=== PATIENT | male | born 1960 | race Caucasian/White ===

== ENCOUNTER 2017-09-12 17:43 | Emergency (ER) | payer OTHER, SELFPAY ==
[2017-09-12 17:47] VITALS: BP 145/80; PULSE 81; RESP 18; TEMP 35.9; O2SAT 96; BMI 47.9
--- NOTE | 2017-09-12 17:59 | DI.RAD.S_ITS ---
PROCEDURE: XR ELBOW LT 2V INDICATIONS: injury TECHNIQUE: 2 views of the elbow were acquired. COMPARISON: None. FINDINGS: Bones: No fractures or dislocations. No suspicious bony lesions. Ossicles adjacent to the medial epicondyle suggesting epicondylitis. There is a osteochondroma in the distal humeral metaphysis. Soft tissues: No elbow joint effusion. No suspicious soft tissue calcifications. IMPRESSION: 1. No definitive fractures. If clinical symptoms persist or clinical suspicion for pathology is high, a repeat examination in 7-10 days, or advanced imaging such as CT or MRI is suggested for further evaluation. 2. Suspect lateral epicondylitis. 3. An osteochondroma in the distal humeral metaphysis. Dictated by: Mirian Lowery M.D. on 09/12/2017 at 18:27 Approved by: Mirian Lowery M.D. on 09/12/2017 at 18:37
--- NOTE | 2017-09-12 19:10 | ED_ITS ---
HPI - Extremity Injury (Upper) <GARY Valerio - Last Filed: 09/12/17 22:15> General Chief Complaint: Extremity Injury, Upper Stated Complaint: FALL LEFT ARM INJURY Time Seen by Provider: 09/12/17 19:13 History of Present Illness HPI narrative: 56-year-old male here for complaint of pain into his left elbow status post fall out of a truck that happened earlier this afternoon. 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 He reports increased pain with motion of the left elbow. He denies any other injuries or concerns. Pain is limited to the left elbow. Patient is right-hand dominant MD complaint: injury to: left and elbow Related Data Home Medications Medication Instructions Recorded Confirmed No Known Home Medications 09/12/17 09/12/17 Allergies Allergy/AdvReac Type Severity Reaction Status Date / Time amoxicillin Allergy Severe Swelling Verified 09/12/17 17:51 of Lip/Tongue/Throat Penicillins Allergy Severe Swelling Verified 09/12/17 17:51 of Lip/Tongue/Throat Review of Systems <GARY Valerio - Last Filed: 09/12/17 22:15> Constitutional Comments: Left elbow pain Eyes Denies change in vision, Denies eye discharge, Denies irritation and Denies loss of vision ENT Ears, Nose, Mouth, and Throat: Denies change in voice, Denies neck pain and Denies sore throat Cardiovascular Denies chest pain, Denies irregular heart rhythm, Denies lightheadedness, Denies palpitations, Denies dyspnea, Denies dyspnea on exertion and Denies orthopnea Respiratory Denies cough, Denies dyspnea, Denies dyspnea on exertion and Denies wheezing Gastrointestinal Gastrointestinal: Denies abdominal pain, Denies change in bowel habits, Denies diarrhea, Denies nausea and Denies vomiting Genitourinary Denies hematuria, Denies flank pain, Denies urinary incontinence and Denies urinary urgency Musculoskeletal Denies neck pain Integumentary/Breasts Denies pruritus, Denies erythema, Denies rash and Denies wounds Neurologic Denies confusion and Denies loss of vision Psychiatric Denies anxiety, Denies confusion, Denies depression, Denies homicidal ideation and Denies suicidal ideation Endocrine Denies palpitations Allergic/Immunologic Denies wheezing Exam <GARY Valerio - Last Filed: 09/12/17 22:15> Initial Vital Signs Initial Vital Signs: Vital Signs Temperature 96.6 F L 09/12/17 17:47 Pulse Rate 81 09/12/17 17:47 Respiratory Rate 18 09/12/17 17:47 Blood Pressure 145/80 H 09/12/17 17:47 Pulse Oximetry 96 09/12/17 17:47 Const General: cooperative and well developed Nutritional Appearance: well nourished Orientation: alert, awake, oriented x3 and not confused [facility] Head: normal to inspection, normocephalic and atraumatic Mouth: oral mucosae normal and moist mucous membranes Eyes Sclera: sclerae normal Cornea: corneas normal Pupils: PERRL EOM: EOM intact bilaterally Neck Neck: normal visual inspection, trachea midline, No lymphadenopathy, No midline deformity and No JVD Lymphatic: No lymphedema Resp Effort & Inspection: normal respiratory effort, able to speak in complete sentences, no respiratory distress and no use of accessory muscles Auscultation: clear to auscultation bilaterally, no rales, no rhonchi and no wheezes Cardio Rate: regular rate Rhythm: regular rhythm Heart Sounds: no click, no gallops, no murmurs and no rubs Skin General: no rashes or lesions noted, No jaundice and No petechiae <Mary Bryant DO - Last Filed: 09/13/17 01:10> Initial Vital Signs Initial Vital Signs: Vital Signs Temperature 96.6 F L 09/12/17 17:47 Pulse Rate 81 09/12/17 17:47 Respiratory Rate 18 09/12/17 17:47 Blood Pressure 145/80 H 09/12/17 17:47 Pulse Oximetry 96 09/12/17 17:47 Course <GARY Valerio - Last Filed: 09/12/17 22:15> Orders Ordered: ED Orders 09/12/17 17:59 XR elbow LT 2V Stat Vital Signs - 8 hr 09/12/17 17:47 09/12/17 20:20 Temperature 96.6 F L Pulse Rate 81 86 Respiratory Rate 18 Blood Pressure 145/80 H Blood Pressure [Right Arm] 159/93 H Pulse Oximetry 96 94 <Mary Bryant DO - Last Filed: 09/13/17 01:10> Orders Ordered: ED Orders 09/12/17 17:59 XR elbow LT 2V Stat Vital Signs - 8 hr 09/12/17 17:47 09/12/17 20:20 Temperature 96.6 F L Pulse Rate 81 86 Respiratory Rate 18 Blood Pressure 145/80 H Blood Pressure [Right Arm] 159/93 H Pulse Oximetry 96 94 MDM - Extremity Injury (Upper) <GARY Valerio - Last Filed: 09/12/17 22:15> Imaging Data Left elbow : Radiologist's impression: PROCEDURE: XR ELBOW LT 2V INDICATIONS: injury TECHNIQUE: 2 views of the elbow were acquired. COMPARISON: None. FINDINGS: Bones: No fractures or dislocations. No suspicious bony lesions. Ossicles adjacent to the medial epicondyle suggesting epicondylitis. There is a osteochondroma in the distal humeral metaphysis. Soft tissues: No elbow joint effusion. No suspicious soft tissue calcifications. IMPRESSION: 1. No definitive fractures. If clinical symptoms persist or clinical suspicion for pathology is high, a repeat examination in 7-10 days, or advanced imaging such as CT or MRI is suggested for further evaluation. 2. Suspect lateral epicondylitis. 3. An osteochondroma in the distal humeral metaphysis. Dictated by: Mirian Lowery M.D. on 09/12/2017 at 18:27 Approved by: Mirian Lowery M.D. on 09/12/2017 at 18:37 [facility] Narrative Medical decision making narrative: X-rays obtained of the left elbow and was negative for any acute findings. Signs and symptoms presents as contusion to the left elbow. [id number] Tylenol or Motrin as needed for any discomfort. Ice and elevation help with swelling. Follow up with primary care provider in 7-10 days for repeat films if still having pain into the left elbow to rule out occult fracture. If continue symptoms long-term may need MRI to left elbow to rule out soft tissue injury. For any worsening symptoms return to the emergency room. Discharge Plan Departure Patient Disposition: Home, Self-Care Clinical Impression: Contusion of elbow, left Discharge Date/Time: 09/12/17 20:21 Interventions: ED Discharge Assessment Last Done: 09/12/17 20:21 Instructions: DI for Elbow Pain Activity Restrictions/Additional Instructions: X-rays obtained of the left elbow and was negative for any acute findings. Signs and symptoms presents as contusion to the left elbow. Bsja-hun-qalrldm Tylenol or Motrin as needed for any discomfort. Ice and elevation help with swelling. Follow up with primary care provider in 7-10 days for repeat films if still having pain into the left elbow to rule out occult fracture. If continue symptoms long-term may need MRI to left elbow to rule out soft tissue injury. For any worsening symptoms return to the emergency room. Prescriptions: No Action No Known Home Medications RF: 0 Referrals: [facility] [Provider Group] <Mary Bryant DO - Last Filed: 09/13/17 01:10> Cosign ED Attending Johnathonature Attestation: I was immediately available in the department for consultation. Documentation has been reviewed. I agree with assessment and plan.
[2017-09-12 20:20] VITALS: BP 159/93; PULSE 86; O2SAT 94
== END 2017-09-12 20:21 | disposition home or self-care (01) ==
PROVIDERS: Emergency Provider Nurse Practitioner Family
DX: S50.02XA Contusion of left elbow, initial encounter (principal); W17.89XA Other fall from one level to another, initial encounter
CPT/HCPCS: 73070; 99282; 99283

== ENCOUNTER 2017-09-29 09:55 | Emergency (ER) | payer OTHER, SELFPAY ==
[2017-09-29 10:07] VITALS: BP 149/98; PULSE 85; RESP 18; TEMP 36.6; O2SAT 99; BMI 51.7
--- NOTE | 2017-09-29 10:10 | ED_ITS ---
HPI - Extremity Injury (Upper) General Chief Complaint: Extremity Injury, Upper Stated Complaint: swollen left arm from fall 2 weeks ago Time Seen by Provider: 09/29/17 10:09 Source: patient Mode of arrival: ambulatory Limitations: no limitations History of Present Illness HPI narrative: Patient is a 56-year-old male here for evaluation of left elbow pain. 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 Was seen here in the emergency department and had x- rays performed which showed no acute fractures. Patient was told that if his symptoms do not improve within a couple weeks he should return for further x- rays. He states that for the past 2 weeks he has tried [id number] medication however his elbow is continue to hurt. He states that he feels a ? click? in the area with limited range of motion. And also feels like it is ? dislocated? no wrist pain. No shoulder pain. Related Data Home Medications Medication Instructions Recorded Confirmed ibuprofen [Advil] 1 tab PO PRN PRN 09/29/17 09/29/17 naproxen sodium [Aleve] 220 mg PO PRN PRN 09/29/17 09/29/17 Allergies Allergy/AdvReac Type Severity Reaction Status Date / Time amoxicillin Allergy Severe Swelling Verified 09/29/17 10:26 of Lip/Tongue/Throat Penicillins Allergy Severe Swelling Verified 09/29/17 10:26 of Lip/Tongue/Throat Review of Systems Constitutional Denies fatigue and Denies fever(s) Cardiovascular Denies chest pain, Denies palpitations and Denies dyspnea Respiratory Denies cough and Denies dyspnea Gastrointestinal Gastrointestinal: Denies abdominal pain, Denies nausea and Denies vomiting Musculoskeletal Comments: Left elbow pain with left arm swelling Integumentary/Breasts Denies lesions and Denies rash Neurologic Comments: No numbness or tingling left upper extremity Endocrine Denies fatigue and Denies palpitations Hematologic/Lymphatic Denies easy bleeding and Denies easy bruising [facility] Medical History Hypertension (Acute) Surgical History H/O umbilical hernia repair (Acute) Social History Smoking Status: Former smoker Exam Initial Vital Signs Initial Vital Signs: Vital Signs Temperature 97.9 F 09/29/17 10:07 Pulse Rate 85 09/29/17 10:07 Respiratory Rate 18 09/29/17 10:07 Blood Pressure 149/98 H 09/29/17 10:07 Pulse Oximetry 99 09/29/17 10:07 Const General: cooperative, healthy appearing, comfortable, well developed, well groomed and No acute distress Nutritional Appearance: overweight Orientation: alert, awake and oriented x3 HENMT Head: normal to inspection and normocephalic Resp Effort & Inspection: normal respiratory effort Skin Lesions: no lesions Rashes: no rashes Neuro Other: Sensation intact to light touch left upper extremity Extrem Other: Left shoulder unremarkable Left forearm unremarkable Left wrist unremarkable Left hand unremarkable Patient with limited range of motion active and passive of extending his left elbow. Holds his elbow in 90? of flexion. Has pain with supination. Psych Appearance: grossly normal and well kempt Course Orders Ordered: ED Orders 09/29/17 10:21 XR elbow LT min 3V Stat Vital Signs - 8 hr 09/29/17 10:07 Temperature 97.9 F Pulse Rate 85 Respiratory Rate 18 Blood Pressure 149/98 H Pulse Oximetry 99 [facility] - Extremity Injury (Upper) Medical Records Attestation: I reviewed the patient's medical records. Imaging Data X-ray elbow: Radiologist's impression: PROCEDURE: XR ELBOW LT MIN 3V INDICATIONS: Left elbow pain after fall with increasing swelling TECHNIQUE: 3 views of the elbow were acquired. COMPARISON: [facility], , XR ELBOW LT 2V, 09/12/2017, 18:05. FINDINGS: Bones: There is a comminuted fracture of the right radial head. No other fracture or dislocation. Mild degenerative changes are present at the elbow joint. Soft tissues: In elbow joint is not well appreciated; however given the radial head fracture, an occult joint effusion is suspected. Soft tissue calcifications are redemonstrated along the lateral epicondyle. IMPRESSION: Comminuted radial head fracture. Dictated by: Regina Molina M.D. on 09/29/2017 at 10:52 Approved by: Regina Molina M.D. on 09/29/2017 at 10:53 [facility] Narrative Medical decision making narrative: Patient with a comminuted left radial head fracture. Injury was 2 weeks ago. Reviewed the x-ray from that time and was reported as negative. I did discuss this with the patient. He was placed in a splint. He was given follow-up with the orthopedic group here in [facility]. He was given return precautions. He expressed understanding and agreement with plan. Splint placed by nursing staff Discharge Plan Departure Patient Disposition: Home, Self-Care Clinical Impression: Closed fracture of radial head Instructions: DI for Elbow Fracture, How to Take Care of Your Splint Activity Restrictions/Additional Instructions: Keep the splint on and keep it clean and keep it dry. Call your primary care doctor for a follow-up. Also recommend you contact the [facility]opedic group at [phone] for a follow-up. Return to the emergency department for any new or worsening symptoms Prescriptions: No Action naproxen sodium [Aleve] 220 mg Tablet 220 mg PO PRN PRN (Reason: Pain, Moderate) RF: 0 ibuprofen [Advil] 200 mg Tablet 1 tab PO PRN PRN (Reason: Inflammation) RF: 0
--- NOTE | 2017-09-29 10:21 | DI.RAD.S_ITS ---
PROCEDURE: XR ELBOW LT MIN 3V INDICATIONS: Left elbow pain after fall with increasing swelling TECHNIQUE: 3 views of the elbow were acquired. COMPARISON: [facility], CR, XR ELBOW LT 2V, 09/12/2017, 18:05. FINDINGS: Bones: There is a comminuted fracture of the right radial head. No other fracture or dislocation. Mild degenerative changes are present at the elbow joint. Soft tissues: In elbow joint is not well appreciated; however given the radial head fracture, an occult joint effusion is suspected. Soft tissue calcifications are redemonstrated along the lateral epicondyle. IMPRESSION: Comminuted radial head fracture. Dictated by: Regina Molina M.D. on 09/29/2017 at 10:52 Approved by: Regina Molina M.D. on 09/29/2017 at 10:53
[2017-09-29 11:40] VITALS: BP 166/92; PULSE 87; RESP 16; O2SAT 99
== END 2017-09-29 11:49 | disposition home or self-care (01) ==
PROVIDERS: Emergency Provider Emergency Medicine
DX: S52.123A Displaced fracture of head of unspecified radius, initial encounter for closed fracture (principal); W17.89XA Other fall from one level to another, initial encounter; Y99.0 Civilian activity done for income or pay
CPT/HCPCS: 29105; 73080; 99282; 99283

== ENCOUNTER → 2017-10-13 09:39 | Outpatient (CLI) | payer OTHER, SELFPAY ==
--- NOTE | 2017-10-13 | DI.CT.S_ITS ---
PROCEDURE: CT UE LT WO CON INDICATIONS: CLOSED DISPLACED FRACTURE HEAD OF LEFT RADIUS TECHNIQUE: Noncontrast 1-1.5 mm axial sections were acquired through the elbow joint, with coronal and sagittal reformats. COMPARISON: [facility], CR, XR ELBOW LT 2V, 09/12/2017, 18:05. [facility], CR, XR ELBOW LT MIN 3V, 09/29/2017, 10:09. FINDINGS: Image quality: Excellent. Bones: Mildly displaced, comminuted and articulating fracture of the radial head is redemonstrated. There is slight offset of the articular component in the anterior portion of the radial head. Also noted is bony irregularity compatible with avulsion fracture in the posterior margin of the capitellum. Traction spur olecranon process Soft tissues: Calcifications are again noted overlying the lateral epicondyle. Small calcifications in the far posterior soft tissues of the upper arm. IMPRESSION: 1. Articulating fracture of the radial head with slight offset of the articular margin and mild displacement of the superior component 2. Small avulsion fractures posterior margin of the capitellum. Dictated by: Timothy Stubbs M.D. on 10/13/2017 at 11:06 Approved by: Timothy Stubbs M.D. on 10/13/2017 at 11:15
== END ==
PROVIDERS: Visit Provider Physician Assistant
DX: S52.122A Displaced fracture of head of left radius, initial encounter for closed fracture (principal); S62.132A Displaced fracture of capitate [os magnum] bone, left wrist, initial encounter for closed fracture
CPT/HCPCS: 73200

== ENCOUNTER → 2017-10-17 16:03 | Outpatient (CLI) | payer OTHER, SELFPAY ==
[2017-10-17 17:02] LABS: Add Manual Diff / Slide Review NO; Basophils Percent Auto 0.5 % (0-2); Eosinophils Percent Auto 2.2 % (2-4); Lymphocytes Percent Auto 31.1 % (25-40); Mean Corpuscular HGB Conc 34.2 % (30-36); Mean Corpuscular Hemoglobin 31.1 PG (26-34); Mean Corpuscular Volume 90.9 fL (80-100); Monocytes Percent Auto 5.7 % (3-14); Neutrophils Absolute Auto 4200 /uL (3000-5900); Neutrophils Percent Auto 60.5 % (50-75); Platelet Count 189 X10^3/uL (150-400); Red Blood Cell Count 4.84 X10^6/uL (4.5-5.9); Red Cell Distribution Width 13.7 % (11.6-14.8)
[2017-10-17 17:03] LABS: Hemoglobin A1C% w Est Avg Glu 5.6 % (4.0-6.0)
[2017-10-17 18:20] LABS: BUN Creatinine Ratio 15.6 (6-22); Blood Urea Nitrogen 14 mg/dL (9-20); Calcium 9.3 mg/dL (8.4-10.2); Carbon Dioxide 30 mmol/L (22-32); Chloride 102 mmol/L (98-107); Estimated Glomerular Filt Rate > 60.0 mL/min (>60); Glucose 128 mg/dL (70-100); HEMOLYSIS < 15 (0-50); Potassium 4.3 mmol/L (3.4-5.1); Sodium 141 mmol/L (137-145)
== END ==
PROVIDERS: Visit Provider Physician Assistant
DX: S52.122A Displaced fracture of head of left radius, initial encounter for closed fracture (principal); Z01.818 Encounter for other preprocedural examination; Z01.812 Encounter for preprocedural laboratory examination; R73.9 Hyperglycemia, unspecified
CPT/HCPCS: 36415; 80048; 83036; 85025; 93005

== ENCOUNTER → 2018-01-27 12:45 | Outpatient (CLI) | payer OTHER, SELFPAY ==
--- NOTE | 2018-01-27 | DI.RAD.S_ITS ---
PROCEDURE: [place] WRIST INJECTION MR/CT LT INDICATIONS: Displaced fracture of head of left radius, subsequ TECHNIQUE: After informed consent had been obtained, the wrist was examined fluoroscopically, and a site chosen for injection of the radiocarpal compartment from a dorsal approach. Skin was prepped and draped in a sterile fashion and 1% lidocaine infiltrated from the skin down to the articular surface. The patient was unable to cooperate with standard positioning due to body habitus and pain in the left elbow and forear. Attempt was made to introduce a hypodermic needle into the articular space with confirmation of joint injection of contrast medium, which was unsuccessful. Needle was removed and dressing was applied. The patient experienced no complications throughout the procedure and left the fluoroscopic suite in no apparent distress. FINDINGS: A single fluoroscopic spot image demonstrates [id number] injected contrast. IMPRESSION: Fluoroscopic-guided administration of dilute Gadolinium solution for wrist MR arthrogram. The patient was unable to tolerate standard positioning for the procedure. Unable to place the needle into the radiocarpal joint. Dictated by: Mirian Lowery M.D. on 01/27/2018 at 14:10 Approved by: Mirian Lowery M.D. on 01/27/2018 at 14:17
--- NOTE | 2018-01-27 | DI.MRI.S_ITS ---
PROCEDURE: MR WRIST LT W CON INDICATIONS: Displaced fracture of head of left radius, subsequ TECHNIQUE: After the administration of 3-4 mL of dilute intra-articular Gadolinium contrast into the radiocarpal compartment, coronal T1 spin echo with fat saturation and T2 fast spin echo with fat saturation, axial T1 spin echo and T2 fast spin echo with fat saturation, sagittal T1 spin echo with and without fat saturation through the wrist. COMPARISON: [facility], , [place] WRIST INJECTION MR/CT LT, 01/27/2018, 12:03. [facility], CR, XR WRIST 3+ VIEWS LEFT, 11/10/2017, 9:42. [facility], CR, XR HAND 1 OR 2 VIEWS BILATERAL, 01/09/2018, 14:37. [facility], CR, XR WRIST 3+ VIEWS LEFT, 01/09/2018, 14:33. FINDINGS: Image quality: Excellent. Bones and cartilage: The carpal bones are normally aligned. No bone marrow contusions or fractures. Small ossicle seen adjacent to the ulnar styloid on the radiographs dated 11/10/17 probably visualized on image 10 series 6. No evidence for avascular necrosis. There is severe distal radioulnar joint degeneration with a small joint effusion without T1 shortening. Carpal ligaments: The scapholunate and lunotriquetral ligaments appear intact. The radioscaphocapitate and radiolunotriquetral ligaments appear intact. The arcuate ligament and short radiolunate ligament also appear normal. The dorsal intercarpal and radiotriquetral ligaments appear intact. On sagittal images, the pisohamate ligament appears intact. Triangular fibrocartilage complex: The triangular fibrocartilage disc appears frayed. The ulnar attachments appear grossly intact. There is frayed appearance of the radial attachment. The adjacent meniscal homolog appears normal. The ulnar collateral ligament appears intact. The extensor carpi ulnaris tendon is normal in location and morphology. Tendons and soft tissues: The carpal tunnel structures appear normal, including the median nerve. The ulnar nerve appears normal within Guyon's canal. Incidental gadolinium contrast material surrounding the extensor pollicis longus, extensor carpi radialis longus and extensor carpi radialis brevis image 17 series 5, presumably related to the injection. IMPRESSION: Frayed appearance in the central disc and radial attachment of the TFCC suggesting ill-defined, probably chronic/degenerative tear. There is adjacent partial-thickness chondral loss involving the proximal surface of the lunate as well as the distal ulna. Mild subchondral edema in the proximal lunate. The remaining TFCC components appear grossly intact. Distal radioulnar joint degeneration with small joint effusion. Dictated by: Nathanael Christopher M.D. on 01/27/2018 at 14:48 Approved by: Nathanael Christopher M.D. on 01/27/2018 at 15:12
== END ==
PROVIDERS: PCP Physical Therapist; Visit Provider Orthopaedic Surgery
DX: S52.122D Displaced fracture of head of left radius, subsequent encounter for closed fracture with routine healing (principal); M19.032 Primary osteoarthritis, left wrist; M25.432 Effusion, left wrist
CPT/HCPCS: 20605; 73222; 76000

== ENCOUNTER → 2018-03-13 13:46 | Outpatient (CLI) | payer OTHER, SELFPAY ==
--- NOTE | 2018-03-13 | DI.MRI.S_ITS ---
PROCEDURE: MR ELBOW LT W CON INDICATIONS: Displaced fracture of head of left radius, sequela TECHNIQUE: Noncontrast coronal proton density fast spin echo and T2 fast spin echo with fat saturation, axial and sagittal T1 spin echo and T2 fast spin echo with fat saturation through the elbow. COMPARISON: [facility], CR, XR ELBOW 3+ VIEWS LEFT, 02/16/2018, 10:01. FINDINGS: Image quality: Suboptimal due to difficulties with patient positioning, which is reportedly due to body habitus. This precludes normal axial and coronal pulse sequences. There is also motion artifact. Lateral structures: The lateral ulnar collateral ligament and radial collateral ligament are not well evaluated due to suboptimal patient positioning. The overlying common extensor tendon not well seen. Medial structures: The ulnar collateral ligament is not well evaluated due to patient positioning. The overlying common flexor tendon not well seen. The ulnar nerve appears normal in size and signal within the cubital tunnel. Anterior structures: The biceps and brachialis tendons both appear grossly intact as they insert onto the proximal radius and ulna, respectively. No bicipitoradial bursal fluid. The median and radial neurovascular bundles appear normal; no focal muscle atrophy to suggest nerve impingement. Posterior structures: Triceps tendinopathy however only visualized on one pulse sequence. Bone and cartilage: Radial head fracture fragment is noted on image 12 series 7 measuring approximately 5 mm. No definite bridging ossification based on the T1-weighted pulse sequences. There is residual articular surface step-off measuring 2 mm and diastasis measuring approximately 4 mm. Radiocapitellar and ulnotrochlear joint degeneration is seen. There is a joint effusion. IMPRESSION: Joint effusion Ununited appearance of radial head fracture with residual articular surface incongruity at the radiocapitellar articulation. Further bony detail could be characterized with CT as clinically warranted. Limited evaluation given difficulties with patient positioning which precludes normal axial and coronal pulse sequences. With those constraints, technically difficult to evaluate for the common extensor and common flexor tendons, and collateral ligaments. Radiocapitellar and ulnotrochlear joint degeneration. Distal triceps tendinopathy. Dictated by: Nathanael Christopher M.D. on 03/13/2018 at 16:28 Approved by: Nathanael Christopher M.D. on 03/13/2018 at 16:45
== END ==
PROVIDERS: PCP Physical Therapist; Visit Provider Orthopaedic Surgery
DX: S52.122S Displaced fracture of head of left radius, sequela (principal); M19.022 Primary osteoarthritis, left elbow; M25.422 Effusion, left elbow
CPT/HCPCS: 73221

== ENCOUNTER 2019-06-05 10:10 | Emergency (ER) | payer OTHER, MEDICAID, SELFPAY ==
[2019-06-05 10:35] VITALS: BP 170/93; PULSE 92; RESP 22; TEMP 37.1; O2SAT 95; BMI 47.6
--- NOTE | 2019-06-05 11:55 | DI.RAD.S_ITS ---
PROCEDURE: XR CHEST 2V INDICATIONS: moist productive cough TECHNIQUE: 2 views of the chest were acquired. COMPARISON: None. FINDINGS: Surgical changes and devices: None. Lungs and pleura: Lungs are clear. No pleural effusions or pneumothorax. Mediastinum: Mediastinal contours are normal. Heart size is normal. Bones and chest wall: No suspicious bony abnormalities. Age-appropriate bony degenerative changes are seen. Soft tissues appear unremarkable. IMPRESSION: No focal infiltrates are seen. If there is clinical concern for a developing pulmonary process, a short-term followup chest series (with PA and lateral views, performed in deep inspiration) is suggested for further evaluation. Dictated by: Hal Chow M.D. on 06/05/2019 at 11:26 Approved by: Hal Chow M.D. on 06/05/2019 at 11:27
--- NOTE | 2019-06-05 12:08 | ED_ITS ---
HPI - URI/Sore Throat <TOI DeP - Last Filed: 06/06/19 02:10> General Chief Complaint: Upper Respiratory Symptoms Stated Complaint: COUGH SINCE FRI NIGHT POSS COVID 19 Time Seen by Provider: 06/05/19 11:47 Source: patient Mode of arrival: Ambulatory Limitations: no limitations History of Present Illness HPI Narrative: This is a 58-year-old male, former smoker, who presents to ED with chief complain of sore throat and cough since 2 days ago. Patient has been taking natural remedy at home but without much improvement. Patient reports moist cough which gets worse when he is in supine position and trying to rest and reports sputum is in greenish in brown color. Patient is wondering if has an environment and allergies to pollen. Patient denies nausea, vomiting, fever or chills. Patient denies short of breath, known ill contacts or foreign travel. Related Data Home Medications Medication Instructions Recorded Confirmed ibuprofen [Advil] 1 tab PO PRN PRN 09/29/17 09/29/17 naproxen sodium [Aleve] 220 mg PO PRN PRN 09/29/17 09/29/17 Allergies Allergy/AdvReac Type Severity Reaction Status Date / Time amoxicillin Allergy Severe Swelling Verified 09/29/17 10:26 of Lip/Tongue/Throat Penicillins Allergy Severe Swelling Verified 09/29/17 10:26 of Lip/Tongue/Throat Review of Systems <Edwin Alston [facility] Last Filed: 06/06/19 02:10> Review of Systems Narrative: General: Denies fever, chills, fatigue, malaise, sweats. HEENT: Denies sinus pain, ear pain, sore throat, difficulty swallowing, dizziness. Respiratory: See HPI Cardiovascular: Denies chest pain, palpitations, orthopnea, edema. Gastrointestinal: Denies nausea, vomiting, abdominal pain, diarrhea, constipation, melena. : Denies dysuria, frequency, incontinence, hematuria, urinary retention. Musculoskeletal: Denies weakness, joint pain or bony pain. Skin: Denies rash, skin lesions, or other. Neurologic: Denies weakness, headache, numbness, change in speech, confusion, seizures, incoordination. Psychiatric: No concerning psychosocial issues. 12-point review of systems is negative except for those stated above. Patient History <Edwin GARY Alston - Last Filed: 06/06/19 02:10> Medical History Hypertension (Acute) Surgical History H/O umbilical hernia repair (Acute) Social History Smoking Status: Former smoker Smoking Status: Former smoker alcohol intake frequency: a few times a week Substance Use Type: does not use Exam <GARY De - Last Filed: 06/06/19 02:10> Narrative Exam Narrative: GEN: Alert, oriented x 3, well appearing and nourished, and in no acute distress. Head: Normal cephalic, atraumatic. No scalp or temporal tenderness, palpable mass or rash. EYES: Pupils are equal, round, and reactive to light and accommodation. Extraocular muscles are intact bilaterally. There is no subconjunctival hemorrhage, exudate and sclera non-icteric. ENT: Right auditory canals semi occluded with cerumen. Left auditory canal clear and tympanic membranes clear. Hearing grossly intact. Nose without bleeding, purulent discharge or deviation. Turbinates red and slightly edematous. Facial sinuses nontender to palpate. Mucous membrane moist, no mucosal lesion. Throat without erythema, tonsillar hypertrophy or exudate with postnasal drips Uvula in midline, airway patent. Neck: Trachea in midline. No JVD, non-tender without lymphadenopathy. No masses or thyroid megaly. Supple, non-tender and no meningeal signs. CARDIAC: Normal regular rate and rhythm without murmurs, gallops, or rubs. No chest wall tenderness. No peripheral edema, cyanosis or pallor. Capillary refill is less than 2 seconds. RESPIRATORY: Lungs are clear to auscultate bilaterally. Occasional moist cough without wheezes, rales, or rhonchi. No stridor, respiratory distress, increase work of breathing, or accessary muscle used. ABD: Abdomen obese, nontender. No guarding or rebound tenderness to palpate. Bowel sounds are normal in all 4 quadrants. There is no palpable masses or organomegaly. EXT: Full painless ROM of all extremities with no loss of sensation, strength, effusion or edema. SKIN: Warm, dry, normal color for patient. No erythema, lesions or rash over visible areas. BACK: Nontender without deformity or crepitance. No flank tenderness. NEUROLOGICAL: Alert and oriented to place, time and person. Sensation and motor function intact bilaterally. No facial droops, dysphasia. PSYCHIATRIC: Good judgement and reason, without hallucinations, abnormal affect or abnormal behaviors during the examination. Initial Vital Signs Initial Vital Signs: Vital Signs Temperature 98.8 F 06/05/19 10:35 Pulse Rate 92 H 06/05/19 10:35 Respiratory Rate 22 06/05/19 10:35 Blood Pressure 170/93 H 06/05/19 10:35 Pulse Oximetry 95 06/05/19 10:35 <Forrest Terry MD - Last Filed: 06/11/19 17:59> Initial Vital Signs Initial Vital Signs: Vital Signs Temperature 98.8 F 06/05/19 10:35 Pulse Rate 92 H 06/05/19 10:35 Respiratory Rate 22 06/05/19 10:35 Blood Pressure 170/93 H 06/05/19 10:35 Pulse Oximetry 95 06/05/19 10:35 Scores <GARY De - Last Filed: 06/06/19 02:10> GCS Amna coma scale eye opening: Spontaneous Amna coma scale verbal response: Orientated Amna coma scale motor response: Obey commands [place] coma scale total score: 15 Course <GARY De - Last Filed: 06/06/19 02:10> Orders Ordered: ED Orders 06/05/19 11:55 XR chest 2V Stat 06/05/19 12:00 Influenza A & B (PCR) Stat Vital Signs Vital signs: Vital Signs - 8 hr 06/05/19 10:35 Temperature 98.8 F Pulse Rate 92 H Respiratory Rate 22 Blood Pressure 170/93 H Pulse Oximetry 95 <Forrest Terry MD - Last Filed: 06/11/19 17:59> Orders Ordered: ED Orders 06/05/19 11:55 XR chest 2V Stat 06/05/19 12:00 Influenza A & B (PCR) Stat Vital Signs Vital signs: Vital Signs - 8 hr 06/05/19 10:35 Temperature 98.8 F Pulse Rate 92 H Respiratory Rate 22 Blood Pressure 170/93 H Pulse Oximetry 95 [facility] - I/Sore Throat <GARY De - Last Filed: 06/06/19 02:10> Differential Diagnosis Differential diagnosis: Likely upper respiratory infection, viral infection, bronchitis, influenza and other (postnasal drips/allergy) Medical Records Attestation: I reviewed the patient's medical records. Lab Data Labs: Lab Results 06/05/19 Range/Units 12:00 Influenza A (RT-PCR) Flu a positive H (NEGATIVE) Influenza B (RT-PCR) Flu b negative (NEGATIVE) Imaging Data Chest x-ray: Radiologist's Impression: [address] [address] XRay Report Signed Patient: Ruperto Lake EMR#: [id number] : 1960Acct:[id number] Age/Sex: 58 / MDate of Service: 06/05/19 Loc: ED Accession Number: [id number] Procedure: XR chest 2V Ordering Provider: Edwin Alston PROCEDURE: XR CHEST 2V INDICATIONS: moist productive cough TECHNIQUE: 2 views of the chest were acquired. COMPARISON: None. FINDINGS: Surgical changes and devices: None. Lungs and pleura: Lungs are clear. No pleural effusions or pneumothorax. Mediastinum: Mediastinal contours are normal. Heart size is normal. Bones and chest wall: No suspicious bony abnormalities. Age-appropriate bony degenerative changes are seen. Soft tissues appear unremarkable. IMPRESSION: No focal infiltrates are seen. If there is clinical concern for a developing pulmonary process, a short-term followup chest series (with PA and lateral views, performed in deep inspiration) is suggested for further evaluation. Dictated by: Hal Chow M.D. on 06/05/2019 at 11:26 Approved by: Hal Chow M.D. on 06/05/2019 at 11:27 [facility] Narrative Medical decision making narrative: This is a 58 year male who presents to ED with 3 day duration of sore throat, mild cough. Patient has been using home remedies for his symptoms but symptoms are not improving much. Patient reports moist cough with greenish in brown mucus especially when he is trying to sleep at nights. Patient does not endorse constitutional symptoms. Flu test was obtained and it showed influenza positive for A. There is no acute findings from chest x-ray. Patient advised supportive care at home with good hand and cough hygiene to prevent transmission of illness to others. Patient declined other medications to help his symptoms at this time such as Tessalon, albuterol inhaler. Return precautions were discussed with the patient and patient verbalized understanding and agreement with the treatment plan. <Forrest Terry MD - Last Filed: 06/11/19 17:59> Lab Data Labs: Lab Results 06/05/19 Range/Units 12:00 Influenza A (RT-PCR) Flu a positive H (NEGATIVE) Influenza B (RT-PCR) Flu b negative (NEGATIVE) Discharge Plan Departure Patient Disposition: Home Clinical Impression: Influenza Discharge Date/Time: 06/05/19 13:55 Instructions: DI for Influenza -- Adult Activity Restrictions/Additional Instructions: You have been diagnosed with [influenza A. no acute findings per chest x-ray today]. What to do: *Take your medications as directed. You can take [id number] Tylenol and or Motrin as needed for discomfort or fever. Please hydrate well and rest. Good hand/cough hygiene will prevent transmitting illness to fathers. You have deferred cough pills to go home with. You can take [id number] Mucinex for your symptoms. *Follow up with your primary care provider in 2-3 days, call for an appointment. Let them know you were seen in the ED and that we asked you to be seen in follow up. *Return to ED if you have any new, worsening, or concerning symptoms, such as [chest pain, breathing difficulty, unable to tolerate fluids, high fever not managed with medications, feeling like fainting, or any acute concerns]. Prescriptions: No Action naproxen sodium [Aleve] 220 mg Tablet 220 mg PO PRN PRN (Reason: Pain, Moderate) RF: 0 ibuprofen [Advil] 200 mg Tablet 1 tab PO PRN PRN (Reason: Inflammation) RF: 0 Referrals: Marvin Ha PT [Primary Care Provider] -
[2019-06-05 12:40] LABS: Influenza A - CEPHEID Flu A POSITIVE (NEGATIVE); Influenza B - CEPHEID Flu B NEGATIVE (NEGATIVE)
[2019-06-05 13:54] VITALS: BP 141/86; PULSE 84; RESP 16; TEMP 36.5; O2SAT 96
== END 2019-06-05 13:55 | disposition home or self-care (01) ==
PROVIDERS: Emergency Provider Nurse Practitioner Family; PCP Physical Therapist
DX: J10.1 Influenza due to other identified influenza virus with other respiratory manifestations (principal); I10 Essential (primary) hypertension
CPT/HCPCS: 71046; 87502; 99281; 99283

== ENCOUNTER 2019-12-18 07:30 | Emergency (ER) | payer OTHER, MEDICAID, SELFPAY ==
[2019-12-18] VITALS (11 sets, daily range): BP systolic 143–185; BP diastolic 72–96; PULSE 84–103; RESP 20–30; TEMP 36.7; O2SAT 94–96; BMI 52.2
--- NOTE | 2019-12-18 08:10 | ED_ITS ---
HPI - Sepsis General Chief Complaint: Upper Respiratory Symptoms Mode of arrival: Family Vehicle Source: patient Limitations: no limitations Evaluation Sepsis Screen: No Definite Risk Sepsis Infection Criteria Present: Suspected New Infection Associated Symptoms: fever, chills and loss of appetite Narrative: 58-year-old male, morbidly obese with history of hypertension is a former smoker the presents with fever, chills, poor appetite and foul-smelling urine for the past day or 2. He has here because his boss sent him for fear of possible COVID-19. Patient denies any headache, blurred vision, runny nose, sore throat, cough. He denies any chest pain or shortness of breath. He has had no nausea, vomiting or diarrhea. He denies dysuria or frequency but does admit to foul-smelling urine. He denies any rash. He denies any exposure to persons known to have COVID-19. Review of Systems Constitutional Constitutional: Reports chills, Denies fatigue, Reports fever(s), Denies frequent falls, Denies lethargy and Denies weakness Eyes Eyes: Denies change in vision, Denies eye discharge, Denies irritation and Denies loss of vision ENT Ears, Nose, Mouth, and Throat: Denies change in voice, Denies dizziness, Denies neck pain, Denies sore throat and Denies throat swelling Cardiovascular Cardiovascular: Denies chest pain, Denies irregular heart rhythm, Denies lightheadedness, Denies palpitations, Denies dyspnea, Denies dyspnea on exertion and Denies orthopnea Respiratory Respiratory: Denies cough, Denies dyspnea, Denies dyspnea on exertion and Denies wheezing Gastrointestinal Gastrointestinal: Denies abdominal pain, Denies change in bowel habits, Denies diarrhea, Denies nausea and Denies vomiting Genitourinary Comments: Foul-smelling urine Musculoskeletal Musculoskeletal: Denies neck pain and Denies numbness Integumentary/Breasts Skin/Breast: Denies pruritus, Denies erythema, Denies rash and Denies wounds Neurologic Neurologic: Denies behavioral changes, Denies confusion, Denies dizziness, Denies frequent falls, Denies loss of vision, Denies numbness and Denies weakness Psychiatric Psychiatric: Denies anxiety, Denies behavioral changes, Denies confusion, Denies depression, Denies homicidal ideation and Denies suicidal ideation Endocrine Endocrine: Denies fatigue, Denies flushing and Denies palpitations Hematologic/Lymphatic Hematologic/Lymphatic: Denies easy bruising Allergic/Immunologic Allergic/Immunologic: Denies urticaria, Denies throat swelling and Denies wheezing Patient History Medical History Hypertension (Acute) Surgical History H/O umbilical hernia repair (Acute) Social History Smoking Status: Former smoker Smoking Status: Former smoker tobacco type: cigarettes alcohol intake frequency: a few times a week Substance Use Type: does not use Exam Narrative Exam Narrative: GENERAL: [58] year old patient appears stated age. Morbidly obese, no obvious distress HEAD: Atraumatic. Normocephalic. EYES: Pupils equal round and reactive. Extraocular motions intact. No scleral ic terus. No injection or drainage. ENT: Nose without bleeding, purulent drainage. Throat without erythema, tonsillar hypertrophy or exudate. Airway patent. NECK: Trachea midline. Non tender CARDIOVASCULAR: Regular rate and rhythm without murmurs, gallops, or rubs. RESPIRATORY: Clear to auscultation. Breath sounds equal bilaterally. No wheezes, rales, or rhonchi. GASTROINTESTINAL: Abdomen soft, non-tender, nondistended. EXTREMITIES: No edema or joint tenderness. BACK: Nontender without deformity or crepitance. No flank tenderness. NEURO: AOx3. SKIN: No rash or erythema of visible areas Initial Vital Signs Initial Vital Signs: Vital Signs Temperature 98.1 F 12/18/19 08:03 Pulse Rate 100 H 12/18/19 08:03 Respiratory Rate 25 H 12/18/19 08:03 Blood Pressure 185/96 H 12/18/19 08:03 Pulse Oximetry 96 12/18/19 08:03 Course Course Course Narrative: patient feeling great on DC. Given feverish symptoms, elevated procalcitonin, we discussed treating for atypical pneumonia and elect to treat. Patient had return precautions given, questions answered to his apparent satisfaction. Orders Ordered: ED Orders 12/18/19 08:08 Complete Blood Count AUTO DIFF Stat Procalcitonin Stat 12/18/19 08:09 XR chest 1V Stat Prothrombin Time INR Stat 12/18/19 08:36 COVID19 -ED/INPAT/OR/L&D Stat 12/18/19 09:17 Blood Culture Stat Comprehensive Metabolic Panel Stat D Dimer Stat Ferritin Stat Lactate (Lactic Acid) Stat Magnesium Stat NT-proBNP (BNP-Adult 18+) Stat Troponin & CK Cardiac Panel Stat Discontinued Medications Sodium Chloride (Normal Saline 0.9%) 1,000 mls @ 1,000 mls/hr IV BOLUS ONE Stop: 12/18/19 09:05 Last Infusion: 12/18/19 10:25 Dose: 0 mls/hr Documented by: Admin: 12/18/19 08:48 Dose: 1,000 mls/hr Documented by: GILBERTO Vital Signs Vital signs: Vital Signs - 8 hr 12/18/19 08:03 12/18/19 08:41 12/18/19 09:00 Temperature 98.1 F Pulse Rate 100 H 93 H 94 H Respiratory Rate 25 H 30 H 27 H Blood Pressure 185/96 H Pulse Oximetry 96 94 94 12/18/19 09:01 12/18/19 09:30 12/18/19 09:31 Temperature Pulse Rate 94 H 103 H 96 H Respiratory Rate 24 25 H 23 Blood Pressure 151/72 H 159/74 H Pulse Oximetry 94 94 95 12/18/19 10:00 12/18/19 10:22 12/18/19 10:30 Temperature Pulse Rate 91 H 94 H 90 Respiratory Rate 25 H 27 H Blood Pressure 143/96 H 153/82 H Pulse Oximetry 95 95 94 12/18/19 11:00 12/18/19 11:30 Temperature Pulse Rate 84 86 Respiratory Rate 23 20 Blood Pressure 146/79 H 156/75 H Pulse Oximetry 94 94 MDM - Sepsis Lab Data Result diagrams: 12/18/19 08:08 12/18/19 09:17 Labs: Lab Results 12/18/19 12/18/19 12/18/19 Range/Units 08:08 08:08 08:09 WBC 8.3 (4.5-11.0) X10^3/uL RBC 4.52 (4.5-5.9) X10^6/uL Hgb 14.5 (13.5-17.5) g/dL Hct 41.9 (41-53) % MCV 92.9 (80-100) fL MCH 32.1 (26-34) PG MCHC 34.6 (30-36) % RDW 14.0 (11.6-14.8) % Plt Count 133 L (150-400) X10^3/uL Neut % (Auto) 81.6 H (50-75) % Lymph % (Auto) 9.5 L (25-40) % [place] % (Auto) 7.7 (3-14) % Eos % (Auto) 0.1 L (2-4) % Baso % (Auto) 1.1 (0-2) % Neut # (Auto) 6800 (7072-7272) /uL Lymph # (Auto) 800 L (5968-4446) /uL [place] # (Auto) 600 (0-900) /uL Eos # (Auto) 0 (0-450) /uL Baso # (Auto) 100 (0-100) /uL PT 13.0 H (10.1-12.7) SECONDS INR 1.1 (0.9-1.3) D-Dimer (<230) ng/mL Sodium (137-145) mmol/L Potassium (3.4-5.1) mmol/L Chloride (98-107) mmol/L Carbon Dioxide (22-32) mmol/L BUN (9-20) mg/dL Creatinine (0.66-1.25) mg/dL Estimated GFR (>60) mL/min BUN/Creatinine Ratio (6-22) Glucose (70-100) mg/dL Lactate (0.7-2.1) mmol/L Calcium (8.4-10.2) mg/dL Magnesium (1.6-2.3) mg/dL Ferritin (18-464) ng/mL Total Bilirubin (0.2-1.3) mg/dL AST (17-59) IU/L ALT (<50) IU/L Alkaline Phosphatase (38-126) U/L Total Creatine Kinase (55-170) U/L CK-MB (CK-2) (<2.37) ng/mL CK-MB (CK-2) Rel Index (1.5-5.0) % Troponin I (0.01-0.034) ng/mL NT-Pro-B Natriuret Pep (<125) pg/mL Total Protein (6.3-8.2) g/dL Albumin (3.5-5.0) g/dL Globulin (1.7-4.1) g/dL Albumin/Globulin Ratio (1.0-2.8) Procalcitonin 1.37 H (<0.5) ng/mL COVID-19 PCR (Negative) 12/18/19 12/18/19 12/18/19 Range/Units 08:36 09:17 09:17 WBC (4.5-11.0) X10^3/uL RBC (4.5-5.9) X10^6/uL Hgb (13.5-17.5) g/dL Hct (41-53) % MCV (80-100) fL MCH (26-34) PG MCHC (30-36) % RDW (11.6-14.8) % Plt Count (150-400) X10^3/uL Neut % (Auto) (50-75) % Lymph % (Auto) (25-40) % [place] % (Auto) (3-14) % Eos % (Auto) (2-4) % Baso % (Auto) (0-2) % Neut # (Auto) (7974-4521) /uL Lymph # (Auto) (9177-6402) /uL [place] # (Auto) (0-900) /uL Eos # (Auto) (0-450) /uL Baso # (Auto) (0-100) /uL PT (10.1-12.7) SECONDS INR (0.9-1.3) D-Dimer 315 H (<230) ng/mL Sodium 136 L (137-145) mmol/L Potassium 3.7 (3.4-5.1) mmol/L Chloride 101 (98-107) mmol/L Carbon Dioxide 26 (22-32) mmol/L BUN 12 (9-20) mg/dL Creatinine 0.76 (0.66-1.25) mg/dL Estimated GFR > 60.0 (>60) mL/min BUN/Creatinine Ratio 15.8 (6-22) Glucose 130 H (70-100) mg/dL Lactate (0.7-2.1) mmol/L Calcium 8.7 (8.4-10.2) mg/dL Magnesium 1.8 (1.6-2.3) mg/dL Ferritin 442 (18-464) ng/mL Total Bilirubin 0.7 (0.2-1.3) mg/dL AST 31 (17-59) IU/L ALT 17 (<50) IU/L Alkaline Phosphatase 39 (38-126) U/L Total Creatine Kinase (55-170) U/L CK-MB (CK-2) (<2.37) ng/mL CK-MB (CK-2) Rel Index (1.5-5.0) % Troponin I (0.01-0.034) ng/mL NT-Pro-B Natriuret Pep 258 H (<125) pg/mL Total Protein 7.5 (6.3-8.2) g/dL Albumin 3.9 (3.5-5.0) g/dL Globulin 3.6 (1.7-4.1) g/dL Albumin/Globulin Ratio 1.1 (1.0-2.8) Procalcitonin (<0.5) ng/mL COVID-19 PCR Negative (Negative) 12/18/19 12/18/19 Range/Units 09:17 09:17 WBC (4.5-11.0) X10^3/uL RBC (4.5-5.9) X10^6/uL Hgb (13.5-17.5) g/dL Hct (41-53) % MCV (80-100) fL MCH (26-34) PG MCHC (30-36) % RDW (11.6-14.8) % Plt Count (150-400) X10^3/uL Neut % (Auto) (50-75) % Lymph % (Auto) (25-40) % [place] % (Auto) (3-14) % Eos % (Auto) (2-4) % Baso % (Auto) (0-2) % Neut # (Auto) (6061-0394) /uL Lymph # (Auto) (2676-8432) /uL [place] # (Auto) (0-900) /uL Eos # (Auto) (0-450) /uL Baso # (Auto) (0-100) /uL PT (10.1-12.7) SECONDS INR (0.9-1.3) D-Dimer (<230) ng/mL Sodium (137-145) mmol/L Potassium (3.4-5.1) mmol/L Chloride (98-107) mmol/L Carbon Dioxide (22-32) mmol/L BUN (9-20) mg/dL Creatinine (0.66-1.25) mg/dL Estimated GFR (>60) mL/min BUN/Creatinine Ratio (6-22) Glucose (70-100) mg/dL Lactate 1.4 (0.7-2.1) mmol/L Calcium (8.4-10.2) mg/dL Magnesium (1.6-2.3) mg/dL Ferritin (18-464) ng/mL Total Bilirubin (0.2-1.3) mg/dL AST (17-59) IU/L ALT (<50) IU/L Alkaline Phosphatase (38-126) U/L Total Creatine Kinase 158 (55-170) U/L CK-MB (CK-2) 0.80 (<2.37) ng/mL CK-MB (CK-2) Rel Index 0.5 L (1.5-5.0) % Troponin I < 0.012 (0.01-0.034) ng/mL NT-Pro-B Natriuret Pep (<125) pg/mL Total Protein (6.3-8.2) g/dL Albumin (3.5-5.0) g/dL Globulin (1.7-4.1) g/dL Albumin/Globulin Ratio (1.0-2.8) Procalcitonin (<0.5) ng/mL COVID-19 PCR (Negative) Urine Dip Bedside Urine Glucose Negative Bedside Urine Bilirubin - Negative Bedside Urine Ketone - Negative Urine Specific [place] 1.025 Bedside Urine Occult Blood - Negative Bedside Urine pH 6 Bedside Urine Protein - Negative Bedside Urine Urobilinogen - Negative Bedside Urine Nitrite - Negative Bedside Urine Leukocytes - Negative Esterase Imaging Data Chest x-ray: Radiologist's Impression: Ruperto Lake 58 M 1960 [address] [address] XRay Report Signed Patient: Ruperto Lake EMR#: [id number] : 1960Acct:[id number] Age/Sex: 58 / MDate of Service: 12/18/19 Loc: ED Accession Number: [id number] Procedure: XR chest 1V Ordering Provider: Ken Bradley D.O. PROCEDURE: XR CHEST 1V INDICATIONS: Short of breath, fever TECHNIQUE: One view of the chest was acquired. COMPARISON: [facility], , XR CHEST 2V, 06/05/2019, 12:09. FINDINGS: Surgical changes and devices: None. Lungs and pleura: On this semiupright portable chest examination, no large pneumothorax or large pleural effusions are seen. No focal infiltrates are seen. Low lung volumes are noted. This causes a crowded appearance to the lung markings and limits evaluation. Interstitial prominence is seen throughout. Mediastinum: Mediastinal contours appear normal. Heart size is normal. Bones and chest wall: No suspicious bony lesions. Overlying soft tissues appear unremarkable. IMPRESSION: Limited portable chest study demonstrating generalized interstitial prominence. Differential diagnosis includes artifact from an incomplete inspiratory result and pulmonary edema. If clinically appropriate, a short-term followup chest series (with PA and lateral views) performed in deep inspiration is suggested for further evaluation. Dictated by: Hal Chow M.D. on 12/18/2019 at 7:58 Approved by: Hal Chow M.D. on 12/18/2019 at 7:59 Discharge Plan Departure Patient Disposition: Home Clinical Impression: Atypical pneumonia Discharge Date/Time: 12/18/19 12:06 Instructions: DI for Atypical Pneumonia Activity Restrictions/Additional Instructions: *You have been diagnosed with [atypical pneumonia] *What to do: *Take medications as directed: Prescription sent to [facility] at your request *Follow up with your primary care provider in 2-3 days, call for an ap pointment. Let them know you were seen in the Emergency Department and that we ask that you be seen in follow up *Return to ER if you should have any new, worsening or concerning symptoms Prescriptions: New doxycycline hyclate 100 mg tablet 100 mg PO BID Qty: 20 RF: 0 No Action naproxen sodium [Aleve] 220 mg Tablet 220 mg PO PRN PRN (Reason: Pain, Moderate) RF: 0 ibuprofen [Advil] 200 mg Tablet 1 tab PO PRN PRN (Reason: Inflammation) RF: 0 Referrals: Marvin Ha PT [Primary Care Provider] -
[2019-12-18] MEDS: SODIUM CHLORIDE 0.9% 1,000 ML 1000 ML IV (08:48)
[2019-12-18 08:58] LABS: COVID19 -Nasal RAPID Negative (Negative)
[2019-12-18 09:51] LABS: Add Manual Diff / Slide Review NO; Basophils Absolute Auto 100 /uL (0-100); Basophils Percent Auto 1.1 % (0-2); Eosinophils Absolute Auto 0 /uL (0-450); Eosinophils Percent Auto 0.1 % (2-4); Hematocrit 41.9 % (41-53); Hemoglobin 14.5 g/dL (13.5-17.5); Lymphocytes Absolute Auto 800 /uL (1100-4500); Lymphocytes Percent Auto 9.5 % (25-40); Mean Corpuscular HGB Conc 34.6 % (30-36); Mean Corpuscular Hemoglobin 32.1 PG (26-34); Mean Corpuscular Volume 92.9 fL (80-100); Monocytes Absolute Auto 600 /uL (0-900); Monocytes Percent Auto 7.7 % (3-14); Neutrophils Absolute Auto 6800 /uL (1500-7000); Neutrophils Percent Auto 81.6 % (50-75); Platelet Count 133 X10^3/uL (150-400); Red Blood Cell Count 4.52 X10^6/uL (4.5-5.9); White Blood Cell Count 8.3 X10^3/uL (4.5-11.0)
[2019-12-18 09:55] LABS: Alanine Aminotransferase 17 IU/L (<50); Albumin 3.9 g/dL (3.5-5.0); Albumin Globulin Ratio 1.1 (1.0-2.8); Alkaline Phosphatase 39 U/L (38-126); Aspartate Aminotransferase 31 IU/L (17-59); BUN Creatinine Ratio 15.8 (6-22); Bilirubin Total 0.7 mg/dL (0.2-1.3); Blood Urea Nitrogen 12 mg/dL (9-20); Calcium 8.7 mg/dL (8.4-10.2); Carbon Dioxide 26 mmol/L (22-32); Chloride 101 mmol/L (98-107); Estimated Glomerular Filt Rate > 60.0 mL/min (>60); Globulin 3.6 g/dL (1.7-4.1); Glucose 130 mg/dL (70-100); HEMOLYSIS < 15 (0-50); Lactate (Lactic Acid) 1.4 mmol/L (0.7-2.1); Magnesium 1.8 mg/dL (1.6-2.3); Potassium 3.7 mmol/L (3.4-5.1); Sodium 136 mmol/L (137-145); Total Protein 7.5 g/dL (6.3-8.2)
[2019-12-18 09:58] LABS: INR 1.1 (0.9-1.3)
[2019-12-18 09:59] LABS: Creatine Kinase 158 U/L (55-170)
[2019-12-18 10:04] LABS: NT-proBNP (BNP-Adult 18+) 258 pg/mL (<125)
[2019-12-18 10:07] LABS: D Dimer 315 ng/mL (<230)
[2019-12-18 10:11] LABS: Troponin I < 0.012 ng/mL (0.01-0.034)
[2019-12-18 10:14] LABS: CKMB % Relative Index 0.5 % (1.5-5.0)
[2019-12-18 10:15] LABS: Procalcitonin 1.37 ng/mL (<0.5)
[2019-12-18 10:30] LABS: Ferritin 442 ng/mL (18-464)
== END 2019-12-18 12:06 | disposition home or self-care (01) ==
PROVIDERS: Emergency Provider Emergency Medicine; PCP Physical Therapist
DX: J18.9 Pneumonia, unspecified organism (principal)
CPT/HCPCS: 36415; 71045; 80053; 81003; 82550; 82553; 82728; 83605; 83735; 83880; 84145; 84484; 85025; 85379; 85610; 87040; 87635; 96360; 96361; 99284

== ENCOUNTER → 2020-01-13 15:49 | Outpatient (CLI) | payer OTHER, MEDICAID, SELFPAY ==
--- NOTE | 2020-01-13 15:51 | DI.US.S_ITS ---
PROCEDURE: US PERIPH VENOUS LOW EXTREM RT INDICATIONS: calf pain TECHNIQUE: Real-time imaging, as well as color and pulse Doppler interrogation, were performed of the lower extremity deep veins from the inguinal ligament to the popliteal fossa. COMPARISON: None. FINDINGS: The common femoral, femoral and popliteal veins are normally compressible, and free of intraluminal thrombus. Color and pulse Doppler demonstrate normal phasic intraluminal flow. There is normal augmentation response to distal compression maneuver. IMPRESSION: Negative for deep venous thrombosis. Dictated by: Hal Chow M.D. on 01/13/2020 at 15:22 Approved by: Hal Chow M.D. on 01/13/2020 at 15:23
== END ==
PROVIDERS: PCP Physical Therapist; Referring Provider Physician Assistant; Visit Provider Physician Assistant
DX: M79.661 Pain in right lower leg (principal)
CPT/HCPCS: 93971

== ENCOUNTER → 2020-02-28 09:05 | Outpatient (CLI) | payer OTHER, MEDICAID, SELFPAY ==
[2020-02-28 10:10] LABS: Add Manual Diff / Slide Review NO; Basophils Absolute Auto 0 /uL (0-100); Basophils Percent Auto 0.5 % (0-2); Eosinophils Absolute Auto 200 /uL (0-450); Eosinophils Percent Auto 3.2 % (2-4); Hematocrit 42.9 % (41-53); Hemoglobin 14.5 g/dL (13.5-17.5); Lymphocytes Absolute Auto 1700 /uL (1100-4500); Lymphocytes Percent Auto 32.5 % (25-40); Mean Corpuscular HGB Conc 33.7 % (30-36); Mean Corpuscular Hemoglobin 31.1 PG (26-34); Mean Corpuscular Volume 92.3 fL (80-100); Monocytes Absolute Auto 400 /uL (0-900); Monocytes Percent Auto 6.8 % (3-14); Neutrophils Absolute Auto 3000 /uL (1500-7000); Platelet Count 200 X10^3/uL (150-400); Red Blood Cell Count 4.65 X10^6/uL (4.5-5.9); Red Cell Distribution Width 13.8 % (11.6-14.8); White Blood Cell Count 5.2 X10^3/uL (4.5-11.0)
[2020-02-28 10:22] LABS: Hemoglobin A1C% w Est Avg Glu 6.1 % (4.0-6.0)
[2020-02-28 10:31] LABS: Alanine Aminotransferase 22 IU/L (<50); Albumin 3.8 g/dL (3.5-5.0); Albumin Globulin Ratio 1.1 (1.0-2.8); Alkaline Phosphatase 46 U/L (38-126); Aspartate Aminotransferase 33 IU/L (17-59); BUN Creatinine Ratio 10.7 (6-22); Bilirubin Total 0.5 mg/dL (0.2-1.3); Blood Urea Nitrogen 8 mg/dL (9-20); Calcium 8.8 mg/dL (8.4-10.2); Carbon Dioxide 29 mmol/L (22-32); Chloride 104 mmol/L (98-107); Cholesterol 204 mg/dL (140-199); Estimated Glomerular Filt Rate > 60.0 mL/min (>60); Globulin 3.6 g/dL (1.7-4.1); Glucose 129 mg/dL (70-100); HDL Cholesterol 40 mg/dL (40-60); HEMOLYSIS < 15 (0-50); LDL Cholesterol Calculated 100 mg/dL (<100); Sodium 136 mmol/L (137-145); Total Protein 7.4 g/dL (6.3-8.2); Triglycerides 318 mg/dL (35-150)
[2020-02-28 10:35] LABS: Microalbumin Urine Random 2.9 mg/dL (0-1.6)
[2020-02-28 11:14] LABS: Creatinine Urine Random 355.8 mg/dL; Microalbumi Creatinin Ratio Ur 8.1 ug/mg CR (<30)
== END ==
PROVIDERS: PCP Family Medicine; Referring Provider Family Medicine; Visit Provider Family Medicine
DX: I10 Essential (primary) hypertension (principal)
CPT/HCPCS: 36415; 80053; 80061; 82043; 82570; 83036; 85025

== ENCOUNTER → 2020-08-31 11:44 | Outpatient (CLI) | payer OTHER, MEDICAID, SELFPAY | PROVIDERS: PCP Family Medicine; Referring Provider Dermatology; Visit Provider Family Medicine | DX: I87.2 Venous insufficiency (chronic) (peripheral) (principal); L97.812 Non-pressure chronic ulcer of other part of right lower leg with fat layer exposed; L03.115 Cellulitis of right lower limb; R60.0 Localized edema | CPT/HCPCS: 11042; 87070; 87075; 87077; 87147; 87186; 87205; 99204; 99213 ==

== ENCOUNTER → 2020-09-01 08:44 | Outpatient (CLI) | payer OTHER, MEDICAID, SELFPAY | PROVIDERS: PCP Family Medicine; Referring Provider Family Medicine; Visit Provider Nurse Practitioner Family | DX: I87.2 Venous insufficiency (chronic) (peripheral) (principal); L97.513 Non-pressure chronic ulcer of other part of right foot with necrosis of muscle | CPT/HCPCS: 99213 ==

== ENCOUNTER → 2020-09-07 10:55 | Outpatient (CLI) | payer OTHER, MEDICAID, SELFPAY | PROVIDERS: PCP Family Medicine; Referring Provider Family Medicine; Visit Provider Family Medicine | DX: I87.2 Venous insufficiency (chronic) (peripheral) (principal); L97.811 Non-pressure chronic ulcer of other part of right lower leg limited to breakdown of skin; R60.0 Localized edema; I16.0 Hypertensive urgency; Z68.43 Body mass index [BMI] 50.0-59.9, adult | CPT/HCPCS: 97597; 99213 ==

== ENCOUNTER → 2020-09-14 09:39 | Outpatient (CLI) | payer OTHER, MEDICAID, SELFPAY | PROVIDERS: PCP Family Medicine; Referring Provider Family Medicine; Visit Provider Nurse Practitioner Family | DX: I87.2 Venous insufficiency (chronic) (peripheral) (principal); L97.811 Non-pressure chronic ulcer of other part of right lower leg limited to breakdown of skin | CPT/HCPCS: 29580 ==

== ENCOUNTER → 2020-09-21 13:47 | Outpatient (CLI) | payer OTHER, MEDICAID, SELFPAY | PROVIDERS: PCP Family Medicine; Referring Provider Family Medicine; Visit Provider Family Medicine | DX: I87.2 Venous insufficiency (chronic) (peripheral) (principal); L97.811 Non-pressure chronic ulcer of other part of right lower leg limited to breakdown of skin; R60.0 Localized edema | CPT/HCPCS: 97597 ==

== ENCOUNTER → 2020-09-28 08:55 | Outpatient (CLI) | payer OTHER, MEDICAID, SELFPAY | PROVIDERS: PCP Family Medicine; Referring Provider Family Medicine; Visit Provider Family Medicine | DX: I87.2 Venous insufficiency (chronic) (peripheral) (principal); L97.811 Non-pressure chronic ulcer of other part of right lower leg limited to breakdown of skin; R60.0 Localized edema | CPT/HCPCS: 29581; 99213 ==

== ENCOUNTER → 2020-10-05 12:25 | Outpatient (CLI) | payer OTHER, MEDICAID, SELFPAY | PROVIDERS: PCP Family Medicine; Referring Provider Family Medicine; Visit Provider Family Medicine | DX: I87.2 Venous insufficiency (chronic) (peripheral) (principal); L97.811 Non-pressure chronic ulcer of other part of right lower leg limited to breakdown of skin; R60.0 Localized edema | CPT/HCPCS: 97597; 99213 ==

== ENCOUNTER → 2020-10-12 09:01 | Outpatient (CLI) | payer OTHER, MEDICAID, SELFPAY | PROVIDERS: PCP Family Medicine; Referring Provider Family Medicine; Visit Provider Family Medicine | DX: I87.2 Venous insufficiency (chronic) (peripheral) (principal); L97.811 Non-pressure chronic ulcer of other part of right lower leg limited to breakdown of skin; R60.0 Localized edema; L08.9 Local infection of the skin and subcutaneous tissue, unspecified | CPT/HCPCS: 11042; 99213 ==

== ENCOUNTER → 2020-10-19 09:33 | Outpatient (CLI) | payer OTHER, MEDICAID, SELFPAY | PROVIDERS: PCP Family Medicine; Referring Provider Family Medicine; Visit Provider Family Medicine | DX: I87.2 Venous insufficiency (chronic) (peripheral) (principal); L97.211 Non-pressure chronic ulcer of right calf limited to breakdown of skin; L97.821 Non-pressure chronic ulcer of other part of left lower leg limited to breakdown of skin; R60.0 Localized edema; Z68.45 Body mass index [BMI] 70 or greater, adult | CPT/HCPCS: 99213; 99214 ==

== ENCOUNTER → 2020-10-26 09:35 | Outpatient (CLI) | payer OTHER, MEDICAID, SELFPAY | PROVIDERS: PCP Family Medicine; Referring Provider Family Medicine; Visit Provider Family Medicine | DX: I87.2 Venous insufficiency (chronic) (peripheral) (principal); L97.811 Non-pressure chronic ulcer of other part of right lower leg limited to breakdown of skin; L97.821 Non-pressure chronic ulcer of other part of left lower leg limited to breakdown of skin; R60.0 Localized edema; L08.9 Local infection of the skin and subcutaneous tissue, unspecified | CPT/HCPCS: 11042; 87070; 87075; 87077; 87186; 87205; 99214 ==

== ENCOUNTER → 2020-11-02 11:33 | Outpatient (CLI) | payer OTHER, MEDICAID, SELFPAY | PROVIDERS: PCP Family Medicine; Referring Provider Family Medicine; Visit Provider Family Medicine | DX: I87.2 Venous insufficiency (chronic) (peripheral) (principal); L97.811 Non-pressure chronic ulcer of other part of right lower leg limited to breakdown of skin; L97.821 Non-pressure chronic ulcer of other part of left lower leg limited to breakdown of skin; L08.9 Local infection of the skin and subcutaneous tissue, unspecified; L53.8 Other specified erythematous conditions; R60.0 Localized edema | CPT/HCPCS: 99214 ==

== ENCOUNTER → 2020-11-09 10:24 | Outpatient (CLI) | payer OTHER, MEDICAID, SELFPAY | PROVIDERS: PCP Family Medicine; Referring Provider Family Medicine; Visit Provider Family Medicine | DX: I87.2 Venous insufficiency (chronic) (peripheral) (principal); L97.811 Non-pressure chronic ulcer of other part of right lower leg limited to breakdown of skin; R60.0 Localized edema; L08.9 Local infection of the skin and subcutaneous tissue, unspecified | CPT/HCPCS: 97597; 99213 ==

== ENCOUNTER → 2020-11-16 15:18 | Outpatient (CLI) | payer OTHER, MEDICAID, SELFPAY | PROVIDERS: PCP Family Medicine; Referring Provider Family Medicine; Visit Provider Family Medicine | DX: I87.2 Venous insufficiency (chronic) (peripheral) (principal); L97.811 Non-pressure chronic ulcer of other part of right lower leg limited to breakdown of skin; R60.0 Localized edema | CPT/HCPCS: 97597 ==

== ENCOUNTER → 2020-11-30 08:39 | Outpatient (CLI) | payer OTHER, MEDICAID, SELFPAY | PROVIDERS: PCP Family Medicine; Referring Provider Family Medicine; Visit Provider Family Medicine | DX: I87.2 Venous insufficiency (chronic) (peripheral) (principal); L97.811 Non-pressure chronic ulcer of other part of right lower leg limited to breakdown of skin; R60.0 Localized edema | CPT/HCPCS: 99212; 99213 ==

== ENCOUNTER → 2020-12-07 13:31 | Outpatient (CLI) | payer OTHER, MEDICAID, SELFPAY | PROVIDERS: PCP Family Medicine; Referring Provider Family Medicine; Visit Provider Family Medicine | DX: I87.2 Venous insufficiency (chronic) (peripheral) (principal); L97.811 Non-pressure chronic ulcer of other part of right lower leg limited to breakdown of skin | CPT/HCPCS: 99213 ==

== ENCOUNTER → 2020-12-11 08:37 | Outpatient (CLI) | payer OTHER, MEDICAID, SELFPAY | PROVIDERS: PCP Family Medicine; Referring Provider Family Medicine; Visit Provider Family Medicine | DX: I87.2 Venous insufficiency (chronic) (peripheral) (principal); L97.811 Non-pressure chronic ulcer of other part of right lower leg limited to breakdown of skin; R60.0 Localized edema; L03.115 Cellulitis of right lower limb | CPT/HCPCS: 11042; 87070; 87075; 87077; 87147; 87186; 87205; 99213 ==

== ENCOUNTER → 2020-12-18 09:50 | Outpatient (CLI) | payer OTHER, MEDICAID, SELFPAY | PROVIDERS: PCP Family Medicine; Referring Provider Family Medicine; Visit Provider Family Medicine | DX: I87.2 Venous insufficiency (chronic) (peripheral) (principal); L97.811 Non-pressure chronic ulcer of other part of right lower leg limited to breakdown of skin; R60.0 Localized edema; L08.9 Local infection of the skin and subcutaneous tissue, unspecified | CPT/HCPCS: 11042; 29580; 87070; 87075; 87077; 87205; 99213 ==

== ENCOUNTER → 2020-12-25 10:00 | Outpatient (CLI) | payer OTHER, MEDICAID, SELFPAY ==
[2020-12-25 12:09] LABS: Alanine Aminotransferase 20 IU/L (<50); Albumin 4.1 g/dL (3.5-5.0); Albumin Globulin Ratio 1.2 (1.0-2.8); Alkaline Phosphatase 41 U/L (38-126); Aspartate Aminotransferase 31 IU/L (17-59); BUN Creatinine Ratio 18.9 (6-22); Bilirubin Total 0.5 mg/dL (0.2-1.3); Blood Urea Nitrogen 14 mg/dL (9-20); Calcium 9.1 mg/dL (8.4-10.2); Carbon Dioxide 31 mmol/L (22-32); Chloride 102 mmol/L (98-107); Cholesterol 240 mg/dL (140-199); Estimated Glomerular Filt Rate > 60.0 mL/min (>60); Globulin 3.4 g/dL (1.7-4.1); Glucose 121 mg/dL (70-100); HDL Cholesterol 47 mg/dL (40-60); HEMOLYSIS < 15 (0-50); LDL Cholesterol Calculated 132 mg/dL (<100); Potassium 4.3 mmol/L (3.4-5.1); Sodium 138 mmol/L (137-145); Total Protein 7.5 g/dL (6.3-8.2); Triglycerides 304 mg/dL (35-150)
[2020-12-25 12:20] LABS: Hemoglobin A1C% w Est Avg Glu 5.8 % (4.0-6.0)
[2020-12-25 16:25] LABS: Creatinine Urine Random 152.2 mg/dL
[2020-12-25 16:32] LABS: Microalbumi Creatinin Ratio Ur 7.8 ug/mg CR (<30); Microalbumin Urine Random 1.2 mg/dL (0-1.6)
[2020-12-26 14:08] LABS: SARS CoV19 IgG Negative (Negative)
== END ==
PROVIDERS: PCP Family Medicine; Referring Provider Family Medicine; Visit Provider Family Medicine
DX: I87.2 Venous insufficiency (chronic) (peripheral) (principal); I10 Essential (primary) hypertension; R73.03 Prediabetes
CPT/HCPCS: 36415; 80053; 80061; 82043; 82570; 83036; 86769

== ENCOUNTER → 2020-12-25 11:31 | Outpatient (CLI) | payer OTHER, MEDICAID, SELFPAY | PROVIDERS: PCP Family Medicine; Referring Provider Family Medicine; Visit Provider Family Medicine | DX: I87.2 Venous insufficiency (chronic) (peripheral) (principal); L97.811 Non-pressure chronic ulcer of other part of right lower leg limited to breakdown of skin; R60.0 Localized edema; L08.9 Local infection of the skin and subcutaneous tissue, unspecified; I10 Essential (primary) hypertension; R73.03 Prediabetes | CPT/HCPCS: 11042; 36415; 80053; 80061; 82043; 82570; 83036; 86769; 99213; 99214 ==

== ENCOUNTER → 2020-12-26 13:15 | Outpatient (CLI) | payer OTHER, MEDICAID, SELFPAY ==
[2020-12-27 13:41] LABS: Fecal Immunochemical Test Negative (Negative)
== END ==
PROVIDERS: PCP Family Medicine; Referring Provider Family Medicine; Visit Provider Family Medicine
DX: Z12.11 Encounter for screening for malignant neoplasm of colon (principal)
CPT/HCPCS: 82274

== ENCOUNTER → 2021-01-04 09:00 | Outpatient (CLI) | payer OTHER, MEDICAID, SELFPAY | PROVIDERS: PCP Family Medicine; Referring Provider Family Medicine; Visit Provider Family Medicine | DX: I87.2 Venous insufficiency (chronic) (peripheral) (principal); L97.811 Non-pressure chronic ulcer of other part of right lower leg limited to breakdown of skin; R60.0 Localized edema; L08.9 Local infection of the skin and subcutaneous tissue, unspecified | CPT/HCPCS: 11042; 87070; 87075; 87205; 99213 ==

== ENCOUNTER → 2021-01-11 12:58 | Outpatient (CLI) | payer OTHER, MEDICAID, SELFPAY | PROVIDERS: PCP Family Medicine; Referring Provider Family Medicine; Visit Provider Family Medicine | DX: I87.2 Venous insufficiency (chronic) (peripheral) (principal); L97.811 Non-pressure chronic ulcer of other part of right lower leg limited to breakdown of skin; R60.0 Localized edema; L08.9 Local infection of the skin and subcutaneous tissue, unspecified | CPT/HCPCS: 11042; 99213 ==

== ENCOUNTER → 2021-01-25 08:34 | Outpatient (CLI) | payer OTHER, MEDICAID, SELFPAY | PROVIDERS: PCP Family Medicine; Referring Provider Family Medicine; Visit Provider Family Medicine | DX: I87.2 Venous insufficiency (chronic) (peripheral) (principal); L97.811 Non-pressure chronic ulcer of other part of right lower leg limited to breakdown of skin; R60.0 Localized edema | CPT/HCPCS: 99213 ==

== ENCOUNTER → 2021-02-12 13:28 | Outpatient (CLI) | payer OTHER, MEDICAID, SELFPAY | PROVIDERS: PCP Family Medicine; Referring Provider Family Medicine; Visit Provider Family Medicine | DX: I87.2 Venous insufficiency (chronic) (peripheral) (principal); L97.812 Non-pressure chronic ulcer of other part of right lower leg with fat layer exposed; R60.0 Localized edema | CPT/HCPCS: 11042 ==

== ENCOUNTER → 2021-03-01 08:41 | Outpatient (CLI) | payer OTHER, MEDICAID, SELFPAY | PROVIDERS: PCP Family Medicine; Referring Provider Family Medicine; Visit Provider Family Medicine | DX: I87.2 Venous insufficiency (chronic) (peripheral) (principal); L97.812 Non-pressure chronic ulcer of other part of right lower leg with fat layer exposed; R60.0 Localized edema; L08.9 Local infection of the skin and subcutaneous tissue, unspecified | CPT/HCPCS: 11042; 87070; 87077; 87147; 87205; 99213 ==

== ENCOUNTER → 2021-03-08 08:41 | Outpatient (CLI) | payer OTHER, MEDICAID, SELFPAY | PROVIDERS: PCP Family Medicine; Referring Provider Family Medicine; Visit Provider Family Medicine | DX: I87.2 Venous insufficiency (chronic) (peripheral) (principal); L97.811 Non-pressure chronic ulcer of other part of right lower leg limited to breakdown of skin; R60.0 Localized edema; L08.9 Local infection of the skin and subcutaneous tissue, unspecified | CPT/HCPCS: 99213 ==

== ENCOUNTER → 2021-03-15 08:55 | Outpatient (CLI) | payer OTHER, MEDICAID, SELFPAY | PROVIDERS: PCP Family Medicine; Referring Provider Dermatology; Visit Provider Family Medicine | DX: I87.2 Venous insufficiency (chronic) (peripheral) (principal); L97.811 Non-pressure chronic ulcer of other part of right lower leg limited to breakdown of skin | CPT/HCPCS: 99213 ==

== ENCOUNTER → 2021-03-29 12:03 | Outpatient (CLI) | payer OTHER, MEDICAID, SELFPAY | PROVIDERS: PCP Family Medicine; Referring Provider Family Medicine; Visit Provider Family Medicine | DX: I87.2 Venous insufficiency (chronic) (peripheral) (principal); L97.811 Non-pressure chronic ulcer of other part of right lower leg limited to breakdown of skin; R60.0 Localized edema; I10 Essential (primary) hypertension; J45.909 Unspecified asthma, uncomplicated; R06.09 Other forms of dyspnea; E66.9 Obesity, unspecified; Z68.43 Body mass index [BMI] 50.0-59.9, adult; Z72.3 Lack of physical exercise | CPT/HCPCS: 99212; 99213 ==